=== PATIENT | male | born 1960 | race Caucasian/White ===

== ENCOUNTER 2017-09-25 13:33 | Emergency (ER) | payer OTHER, SELFPAY ==
[2017-09-25] VITALS (7 sets, daily range): BP systolic 115–136; BP diastolic 70–87; PULSE 82–115; RESP 10–20; TEMP 36.6; O2SAT 95–98; BMI 31.1
--- NOTE | 2017-09-25 14:20 | DI.RAD.S_ITS ---
PROCEDURE: XR CHEST 1V INDICATIONS: irregular heart beat, with light headedness TECHNIQUE: One view of the chest was acquired. COMPARISON: None. FINDINGS: Surgical changes and devices: None. Lungs and pleura: No pleural effusions or pneumothorax. Lungs are clear. Mediastinum: Mediastinal contours appear normal. Heart size is normal. Bones and chest wall: No suspicious bony lesions. Overlying soft tissues appear unremarkable. IMPRESSION: Negative chest. No acute cardiopulmonary process is evident. Dictated by: Pedro Sneed M.D. on 09/25/2017 at 14:40 Approved by: Pedro Sneed M.D. on 09/25/2017 at 14:42
--- NOTE | 2017-09-25 14:43 | PC.NURSE ---
pt with new physician for sleep apnea evaluation today, noted pt with irregular heartbeat and with fluctuation of bp pt report, he has a hx of afib, on metoprolol and 81mg aspiri, reports weakness,light headed,tired,sweat. denies shortness of breath or chest pain, onset at 1115a, still has sxs but not as bad. monitor remain in afib at this time 108-139.
[2017-09-25 14:44] LABS: Add Manual Diff / Slide Review NO; Basophils Percent Auto 0.7 % (0-2); Eosinophils Percent Auto 3.5 % (2-4); Hematocrit 44.8 % (41-53); Hemoglobin 15.5 g/dL (13.5-17.5); Lymphocytes Percent Auto 39.1 % (25-40); Mean Corpuscular HGB Conc 34.7 % (30-36); Mean Corpuscular Hemoglobin 31.5 PG (26-34); Mean Corpuscular Volume 90.8 fL (80-100); Monocytes Percent Auto 9.1 % (3-14); Neutrophils Absolute Auto 2700 /uL (3000-5900); Neutrophils Percent Auto 47.6 % (50-75); Platelet Count 246 X10^3/uL (150-400); Red Blood Cell Count 4.94 X10^6/uL (4.5-5.9); Red Cell Distribution Width 12.9 % (11.6-14.8); White Blood Cell Count 5.8 X10^3/uL (4.5-11.0)
[2017-09-25 14:57] LABS: Alanine Aminotransferase 42 IU/L (21-72); Albumin 4.4 g/dL (3.5-5.0); Albumin Globulin Ratio 1.3 (1.0-2.8); Alkaline Phosphatase 98 U/L (38-126); Aspartate Aminotransferase 26 IU/L (17-59); BUN Creatinine Ratio 17.8 (6-22); Bilirubin Total 0.7 mg/dL (0.2-1.3); Blood Urea Nitrogen 16 mg/dL (9-20); Calcium 9.6 mg/dL (8.4-10.2); Carbon Dioxide 29 mmol/L (22-32); Chloride 101 mmol/L (98-107); Creatine Kinase 132 U/L (55-170); Estimated Glomerular Filt Rate > 60.0 mL/min (>60); Globulin 3.5 g/dL (1.7-4.1); Glucose 93 mg/dL (70-100); HEMOLYSIS < 15 (0-50); Potassium 4.1 mmol/L (3.4-5.1); Sodium 142 mmol/L (137-145); Total Protein 7.9 g/dL (6.3-8.2)
[2017-09-25 15:11] LABS: Troponin I < 0.012 ng/mL (0.01-0.034)
[2017-09-25 15:12] LABS: CKMB % Relative Index 0.7 % (1.5-5.0); Creatine Kinase MB 0.92 ng/mL (<2.37)
[2017-09-25 15:18] LABS: INR 1.1 (0.9-1.3); Prothrombin Time 11.4 SECONDS (10.1-12.7)
[2017-09-25 15:21] LABS: PTT Partial Thromboplastin Tim 29 SECONDS (26.4-36.2)
--- NOTE | 2017-09-25 15:41 | ED_ITS ---
HPI - Arrhythmia/Palpitations General Chief Complaint: Arrhythmia/Palpitations Stated Complaint: STATES IRREGULAR HEART BEAT Time Seen by Provider: 09/25/17 14:25 Source: patient Mode of arrival: ambulatory Limitations: no limitations History of Present Illness HPI narrative: Patient with history of paroxysmal atrial fibrillation, not anticoagulated, presents to the emergency department at the request of the faculty at his sleep doctor's office. He was checking in an initial vital signs noted a rapid irregular heart rate in the 130s and possibly a low blood pressure. Patient denies chest pain, shortness of breath or near syncope. He is very largely asymptomatic MD complaint: rapid heart beat and heart racing Onset (ago): day(s) Duration: now resolved Severity: mild Arrhythmia history: atrial fibrillation Related Data Home Medications Medication Instructions Recorded Confirmed CoQ-10 1 cap PO DAILY 09/25/17 09/25/17 aspirin 81 mg PO QPM 09/25/17 09/25/17 krill oil 1 dose PO DAILY 09/25/17 09/25/17 metoprolol succinate 1 tab PO BID 09/25/17 09/25/17 Allergies Allergy/AdvReac Type Severity Reaction Status Date / Time No Known Drug Allergies Allergy Verified 09/25/17 13:41 Review of Systems Review of Systems All systems reviewed & are unremarkable except as noted in HPI and below Constitutional Denies chills, Denies fever(s), Denies lethargy and Denies weakness Eyes Denies change in vision, Denies eye discharge, Denies irritation and Denies loss of vision ENT Ears, Nose, Mouth, and Throat: Denies change in voice, Denies neck pain and Denies sore throat Cardiovascular Denies chest pain, Denies irregular heart rhythm, Denies lightheadedness, Denies palpitations, Denies dyspnea, Denies dyspnea on exertion and Denies orthopnea Respiratory Denies cough, Denies dyspnea, Denies dyspnea on exertion and Denies wheezing Gastrointestinal Gastrointestinal: Denies abdominal pain, Denies change in bowel habits, Denies diarrhea, Denies nausea and Denies vomiting Genitourinary Denies hematuria, Denies flank pain, Denies urinary incontinence and Denies urinary urgency Musculoskeletal Denies neck pain Integumentary/Breasts Denies pruritus, Denies erythema, Denies rash and Denies wounds Neurologic Denies confusion, Denies loss of vision and Denies weakness Psychiatric Denies anxiety, Denies confusion, Denies depression, Denies homicidal ideation and Denies suicidal ideation Endocrine Denies palpitations Hematologic/Lymphatic Denies easy bruising Allergic/Immunologic Denies wheezing PFSH Medical History Atrial fibrillation (Acute) Sleep apnea (Acute) Social History Smoking Status: Never smoker Exam Narrative Exam Narrative: Pleasant 57-year-old male in mild distress Initial Vital Signs Initial Vital Signs: Vital Signs Temperature 97.9 F 09/25/17 13:37 Pulse Rate 82 09/25/17 13:37 Respiratory Rate 20 09/25/17 13:37 Blood Pressure 122/79 H 09/25/17 13:37 Pulse Oximetry 98 09/25/17 13:37 Const General: cooperative and well developed Nutritional Appearance: well nourished Orientation: alert, awake, oriented x3 and not confused HENMT Head: normocephalic and atraumatic Ears: external ears normal and TM's normal bilaterally Nose: external nose normal and No nasal discharge Face and sinus: sinuses nontender, face symmetric, no sinus tenderness and No dry mucous membranes Mouth: oral mucosae normal and moist mucous membranes Teeth and gingiva: dentition normal Throat: tonsils normal and uvula midline Neck Neck: normal visual inspection, trachea midline, No lymphadenopathy, No midline deformity and No JVD Lymphatic: No lymphedema Chest Chest: normal inspection of the chest Resp Effort & Inspection: normal respiratory effort, able to speak in complete sentences, no respiratory distress and no use of accessory muscles Auscultation: clear to auscultation bilaterally, no rales, no rhonchi and no wheezes Cardio Rate: tachycardic Rhythm: abnormal rhythm Heart Sounds: no click, no gallops, no murmurs and no rubs Pulses: normal peripheral pulses GI Inspection: non-distended Palpation: soft, no hepatosplenomegaly, No guarding, No pulsatile mass and No tender Auscultation: normal bowel sounds Back/Spine/Pelvis Back: No CVA tenderness Cervical Spine: cervical ROM normal and No pain with cervical ROM Thoracic/Lumbar Spine: thoracic and lumbar spine normal to inspection Neuro General: alert, oriented x3, gait normal and no focal motor deficits Speech: speech normal Course Orders Ordered: ED Orders 09/25/17 14:20 XR chest 1V Stat 09/25/17 14:40 Complete Blood Count AUTO DIFF Stat Comprehensive Metabolic Panel Stat Partial Thromboplastin Time Stat Prothrombin Time INR Stat Troponin with CK Cardiac Panel Stat Vital Signs - 8 hr 09/25/17 13:37 09/25/17 14:22 09/25/17 15:27 Temperature 97.9 F Pulse Rate 82 108 H 107 H Respiratory Rate 20 10 L Blood Pressure 122/79 H Blood Pressure [Right Arm] 135/86 H 115/78 Pulse Oximetry 98 96 95 MDM - Arrhythmia/Palpitations Differential Diagnosis Differential diagnosis: Likely palpitations, artial fibrillation, artial flutter and ventricular premature beats Medical Records Attestation: I reviewed the patient's medical records. Lab Data Attestation: I reviewed the patient's lab results. Result diagrams: 09/25/17 14:40 09/25/17 14:40 Lab Results 09/25/17 09/25/17 09/25/17 Range/Units 14:40 14:40 14:40 WBC 5.8 (4.5-11.0) X10^3/uL RBC 4.94 (4.5-5.9) X10^6/uL Hgb 15.5 (13.5-17.5) g/dL Hct 44.8 (41-53) % MCV 90.8 (80-100) fL MCH 31.5 (26-34) PG MCHC 34.7 (30-36) % RDW 12.9 (11.6-14.8) % Plt Count 246 (150-400) X10^3/uL Neut % (Auto) 47.6 L (50-75) % Lymph % (Auto) 39.1 (25-40) % [place] % (Auto) 9.1 (3-14) % Eos % (Auto) 3.5 (2-4) % Baso % (Auto) 0.7 (0-2) % Neut # (Auto) 2700 L (9320-1843) /uL PT 11.4 (10.1-12.7) SECONDS INR 1.1 (0.9-1.3) APTT 29 (26.4-36.2) SECONDS Sodium 142 (137-145) mmol/L Potassium 4.1 (3.4-5.1) mmol/L Chloride 101 (98-107) mmol/L Carbon Dioxide 29 (22-32) mmol/L BUN 16 (9-20) mg/dL Creatinine 0.90 (0.66-1.25) mg/dL Estimated GFR > 60.0 (>60) mL/min BUN/Creatinine Ratio 17.8 (6-22) Glucose 93 (70-100) mg/dL Calcium 9.6 (8.4-10.2) mg/dL Total Bilirubin 0.7 (0.2-1.3) mg/dL AST 26 (17-59) IU/L ALT 42 (21-72) IU/L Alkaline Phosphatase 98 (38-126) U/L Total Creatine Kinase 132 (55-170) U/L CK-MB (CK-2) 0.92 (<2.37) ng/mL CK-MB (CK-2) Rel Index 0.7 L (1.5-5.0) % Troponin I < 0.012 (0.01-0.034) ng/mL Total Protein 7.9 (6.3-8.2) g/dL Albumin 4.4 (3.5-5.0) g/dL Globulin 3.5 (1.7-4.1) g/dL Albumin/Globulin Ratio 1.3 (1.0-2.8) ECG Data Attestation: I personally reviewed and interpreted this ECG as follows: Prior ECG tracings: not available for review Interpretation: Atrial fibrillation, no ischemia. Rate 120 on EKG, upper 90s on exam MDM Narrative Medical decision making narrative: FRANKO?DS?-VASc Score for Atrial Fibrillation Stroke Risk from [employer] on 09/25/2017 All calculations should be rechecked by clinician prior to use RESULT SUMMARY: 0 points Stroke risk was 0.2% per year in >90,000 patients (the [place] Atrial Fibrillation Cohort Study) and 0.3% risk of stroke/TIA/systemic embolism. One recommendation suggests a 0 score is ?low? risk and may not require anticoagulation; a 1 score is ?low-moderate? risk and should consider antiplatelet or anticoagulation, and score 2 or greater is ?moderate-high? risk and should otherwise be an anticoagulation candidate. INPUTS: Age ?> 0 = <65 Sex ?> 0 = Male <abbr title='Congestive heart failure'>CHF</abbr> history ?> 0 = No Hypertension history ?> 0 = No Stroke / TIA / Thromboembolism history ?> 0 = No Vascular disease history ?> 0 = No Diabetes history ?> 0 = No Patient is largely asymptomatic of his AFib and time of onset is unclear. Patient is a largely in AFib in the upper 90s 05/10/2004. Discussion with on- call Cardiology at [facility] recommends increasing metoprolol and following up in office Discharge Plan Departure Patient Disposition: Home, Self-Care Clinical Impression: Paroxysmal atrial fibrillation Instructions: DI for Atrial Fibrillation Activity Restrictions/Additional Instructions: *You have been diagnosed with [ atrial fibrillation ] *What to do: * please increase her metoprolol from 25 mg twice daily, 250 mg twice daily *Follow up with your foundation coordinator, call today for appointment *Return to ER if you should haveany new, worsening or concerning symptoms Prescriptions: No Action aspirin 81 mg Tablet,Delayed Release (Dr/Ec) 81 mg PO QPM RF: 0 metoprolol succinate 25 mg tablet extended release 24 hr 1 tab PO BID RF: 0 CoQ-10 1 cap PO DAILY RF: 0 krill oil 1 dose PO DAILY RF: 0 Referrals: Gama Moreland MD [Non-Staff] -
== END 2017-09-25 17:03 | disposition home or self-care (01) ==
PROVIDERS: Emergency Provider Emergency Medicine
DX: I48.0 Paroxysmal atrial fibrillation (principal)
CPT/HCPCS: 71045; 80053; 82550; 82553; 84484; 85025; 85610; 85730; 93005; 93010; 93041; 99283; 99285

== ENCOUNTER 2018-05-16 10:30 | Emergency (ER) | payer OTHER, SELFPAY ==
[2018-05-16 10:41] VITALS: BP 127/78; PULSE 60; RESP 18; O2SAT 98
--- NOTE | 2018-05-16 11:17 | ED.SKABFB ---
HPI - Skin/Abscess/Foreign Bdy General Chief complaint: Skin/Abscess/Foreign Body Stated complaint: ITCHING RASH ON HEAD Time Seen by Provider: 05/16/18 11:17 Source: patient Mode of arrival: ambulatory Limitations: no limitations History of Present Illness HPI narrative: Patient is a 58-year-old male here for a couple days of a rash that is developing on his forehead. He also is complaining that his right eye is swollen. He states that it is itchy. He has been trying an [id number] antifungal cream without any help. He did think that 1 of the spots was a blister a couple days ago. He also has been using Benadryl. Related Data Home Medications Medication Instructions Recorded Confirmed CoQ-10 1 cap PO QPM 09/25/17 05/16/18 aspirin 81 mg PO QPM 09/25/17 05/16/18 krill oil 1 cap PO DAILY 09/25/17 05/16/18 metoprolol succinate 1 tab PO BID 09/25/17 05/16/18 flecainide 50 mg PO BID 05/16/18 05/16/18 ranitidine HCl 1 tab PO DAILY PRN 05/16/18 05/16/18 Previous Rx's Medication Instructions Recorded acyclovir 800 mg PO 5XD 7 Days #35 tab 05/16/18 Allergies Allergy/AdvReac Type Severity Reaction Status Date / Time No Known Drug Allergies Allergy Verified 09/25/17 13:41 Review of Systems Constitutional Denies fever(s) and Denies headache(s) Eyes Denies itchy eyes Comments: Right eye swelling ENT Ears, Nose, Mouth, and Throat: Denies headache(s), Denies lip swelling, Denies neck pain, Denies nose pain, Denies disequilibrium, Denies sore throat, Denies throat swelling and Denies tongue swelling Cardiovascular Denies chest pain and Denies dyspnea Respiratory Denies dyspnea and Denies wheezing Gastrointestinal Gastrointestinal: Denies abdominal pain Musculoskeletal Denies neck pain Integumentary/Breasts Reports rash Neurologic Denies headache(s) and Denies disequilibrium Hematologic/Lymphatic Comments: Not on anticoagulation Allergic/Immunologic Denies urticaria, Denies itchy eyes, Denies lip swelling, Denies throat swelling, Denies tongue swelling and Denies wheezing PFSH Medical History Atrial fibrillation (Acute) Sleep apnea (Acute) Social History Smoking Status: Never smoker Social History Smoking Status: Never smoker Exam Initial Vital Signs Initial Vital Signs: Vital Signs Pulse Rate 60 05/16/18 10:41 Respiratory Rate 18 05/16/18 10:41 Blood Pressure 127/78 05/16/18 10:41 Pulse Oximetry 98 05/16/18 10:41 Const General: cooperative, healthy appearing, comfortable, well developed, well groomed and No acute distress Orientation: alert, awake and oriented x3 HENMT Head: other (See skin section for description of the rash) Eyes Sclera: sclerae normal Cornea: corneas normal and fluorescein used Pupils: PERRL Resp Effort & Inspection: normal respiratory effort Cardio Rate: regular rate Rhythm: regular rhythm GI Inspection: non-distended Palpation: soft Skin Other: Patient with 3 patches of redness on his right forehead. One patches just in front of his hairline on around his oriental orthodox. Potentially small vesicles in this area. No other patch between the midline in his right oriental orthodox. No vesicles seen however does look like there were prior vesicles that have ruptured. Patient has 1 spot just to the right of midline on his forehead. No vesicles. Neuro General: alert, awake and oriented x3 Extrem General: normal to inspection and capillary refill normal Psych Appearance: grossly normal and well kempt Course Vital Signs - 8 hr 05/16/18 10:41 Pulse Rate 60 Respiratory Rate 18 Blood Pressure 127/78 Pulse Oximetry 98 MDM - Skin/Abscess/Foreign Bdy MDM Narrative Medical decision making narrative: I do have concern based on the patient's history of physical exam that this could be zoster. He states that he has not had the zoster vaccine because he did not have chickenpox as a kid. I am not 100% convinced that this is the diagnosis however I feel that starting him on antivirals is warranted to prevent potential complications. I feel that the down side of starting these antivirals is low. I did discuss all this with the patient. There is no signs of cellulitis. No indication for antibiotics. Patient was given return precautions and care instructions. He does have a follow-up with his primary doctor next Sunday. Patient expressed understanding and agreement plan. Discharge Plan Departure Patient Disposition: Home Clinical Impression: Rash Herpes zoster Qualifiers: Herpes zoster complications: without complications Qualified Code(s): B02.9 - Zoster without complications Instructions: DI for Shingles Activity Restrictions/Additional Instructions: I do recommend you take the shingles medication as directed. Per discussion not 100% convinced that this is shingles however I feel that the down side of starting this medication is low and the potential to prevent future complications warrants starting it. You can take Benadryl for any itching. I would keep her follow-up appointment with your primary doctor next week. Return to the emergency department for any new or worsening symptoms Prescriptions: New acyclovir 800 mg tablet 800 mg PO 5XD 7 Days Qty: 35 RF: 0 No Action aspirin 81 mg Tablet,Delayed Release (Dr/Ec) 81 mg PO QPM RF: 0 metoprolol succinate 25 mg tablet extended release 24 hr 1 tab PO BID RF: 0 CoQ-10 1 cap PO QPM RF: 0 krill oil 1 cap PO DAILY RF: 0 flecainide 50 mg tablet 50 mg PO BID RF: 0 ranitidine HCl 1 tab PO DAILY PRN (Reason: Acid Reflux) RF: 0
[2018-05-16 12:01] VITALS: BP 127/70; PULSE 58; RESP 14; O2SAT 97
== END 2018-05-16 12:11 | disposition home or self-care (01) ==
PROVIDERS: Emergency Provider Emergency Medicine
DX: R21 Rash and other nonspecific skin eruption (principal)
CPT/HCPCS: 99282

== ENCOUNTER 2018-08-11 15:33 | Emergency (ER) | payer OTHER, SELFPAY ==
[2018-08-11 15:46] VITALS: BP 132/80; PULSE 55; RESP 16; TEMP 36.7; O2SAT 98
[2018-08-11] MEDS: KETOROLAC 60 MG/2 ML VIAL IM (20:42)
[2018-08-11] MEDS: CYCLOBENZAPRINE 10 MG PREPACK 1 BOTTLE MISC (20:42)
[2018-08-11] MEDS: HYDROCODONE/ACET 5/325 PREPACK 1 BOTTLE MISC (20:42)
[2018-08-11 21:36] VITALS: BP 118/81; PULSE 92; RESP 16; O2SAT 96
--- NOTE | 2018-08-11 22:25 | ED.BACK ---
HPI - Back Pain/Injury <SAMIR Bunch - Last Filed: 08/11/18 22:29> General Chief Complaint: Back Pain/Injury Stated Complaint: Hurt lower back lt leg raidiating pain Time Seen by Provider: 08/11/18 20:07 Source: patient Mode of arrival: ambulatory Limitations: no limitations History of Present Illness HPI Narrative: The patient is a 58-year-old male nonsmoker with sleep apnea and atrial fibrillation who presents with a chief complaint of left-sided lower back pain radiating down his left leg. He states he fell today few days ago when he was lifting something heavy and ankle. He followed up with a chiropractor, but states his pain got worse yesterday after golfing. He denies any incontinence of bowel or bladder. He states the pain is radiating down his left leg. He states he has stable gait. He has taken some Motrin. He has not taken anything else. He states he is only comfortable laying flat on his back with his knees bent. Related Data Home Medications Medication Instructions Recorded Confirmed CoQ-10 1 cap PO QPM 09/25/17 05/16/18 aspirin 81 mg PO QPM 09/25/17 05/16/18 krill oil 1 cap PO DAILY 09/25/17 05/16/18 metoprolol succinate 1 tab PO BID 09/25/17 05/16/18 flecainide 50 mg PO BID 05/16/18 05/16/18 ranitidine HCl 1 tab PO DAILY PRN 05/16/18 05/16/18 Previous Rx's Medication Instructions Recorded cyclobenzaprine 10 mg PO TID PRN #30 tab 08/11/18 hydrocodone-acetaminophen [[place]] 1 tab PO Q4-6H PRN #5 tab 08/11/18 ketorolac 10 mg PO Q6H PRN 2 Days #8 tab 08/11/18 Allergies Allergy/AdvReac Type Severity Reaction Status Date / Time No Known Drug Allergies Allergy Verified 09/25/17 13:41 Review of Systems <SAMIR Bunch - Last Filed: 08/11/18 22:29> Review of Systems GENERAL: Denies chills, fatigue, malaise, fever, sweats. HEENT: Denies sinus pain, ear pain, sore throat, difficulty swallowing, dizziness. RESPIRATORY: Denies dyspnea, cough, wheezing, hemoptysis, sputum. CARDIOVASCULAR: Denies chest pain, palpitations, orthopnea, edema, GASTROINTESTINAL: Denies nausea, vomiting, abdominal pain, diarrhea, constipation, melena. : Denies dysuria, frequency, incontinence, hematuria, urinary retention. MUSCULOSKELETAL: See HPI SKIN: Denies rash, skin lesions, or other NEUROLOGIC: Denies weakness, headache, numbness, change in speech, confusion, seizures, incoordination. PSYCHIATRIC: No concerning psychosocial issues. 12 point review of systems is negative except for those stated above PFSH <SAMIR Bunch - Last Filed: 08/11/18 22:29> Medical History Atrial fibrillation (Acute) Sleep apnea (Acute) Social History Smoking Status: Never smoker Social History Smoking Status: Never smoker Exam <SAMIR Bunch - Last Filed: 08/11/18 22:29> Narrative Exam Narrative: GENERAL: This is a well-nourished, well-developed patient, no acute distress HEAD: Atraumatic. Normocephalic. No temporal or scalp tenderness. EYES: Pupils equal round and reactive. Extraocular motions intact. No scleral icterus. No injection or drainage. ENT: Nose without bleeding, purulent drainage or septal hematoma. Throat without erythema, tonsillar hypertrophy or exudate. Uvula midline. Airway patent. NECK: Trachea midline. No JVD or lymphadenopathy. Supple, nontender, no meningeal signs. CARDIOVASCULAR: Regular rate and rhythm without murmurs, gallops, or rubs. RESPIRATORY: Clear to auscultation. Breath sounds equal bilaterally. No wheezes, rales, or rhonchi. No cough. No increased respiratory effort. GASTROINTESTINAL: Abdomen soft, non-tender, nondistended. No hepato-splenomegaly, or palpable masses. No guarding. EXTREMITIES: No clubbing, cyanosis, or edema. No joint tenderness, effusion, or edema noted. BACK: Nontender without deformity or crepitance. No flank tenderness. no pain to palpation of C-spine T-spine or L-spine. Pain to palpation of left paraspinal muscles lumbar region. NEURO: AOx3. Cranial nerves grossly intact. Strength is equal upper and lower extremities bilaterally SKIN: No rash or erythema. Initial Vital Signs Initial Vital Signs: Vital Signs Temperature 98.1 F 08/11/18 15:46 Pulse Rate 55 L 08/11/18 15:46 Respiratory Rate 16 08/11/18 15:46 Blood Pressure 132/80 08/11/18 15:46 Pulse Oximetry 98 08/11/18 15:46 <Quinton Goodwin DO - Last Filed: 08/12/18 06:41> Initial Vital Signs Initial Vital Signs: Vital Signs Temperature 98.1 F 08/11/18 15:46 Pulse Rate 55 L 08/11/18 15:46 Respiratory Rate 16 08/11/18 15:46 Blood Pressure 132/80 08/11/18 15:46 Pulse Oximetry 98 08/11/18 15:46 Course <NURY Bunch-ASHU - Last Filed: 08/11/18 22:29> Orders Ordered: Discontinued Medications Hydrocodone Bitart/Acetaminophen (Vicodin Prepack) 1 bottle MISC SEEINSTR ONE Stop: 08/11/18 20:17 Last Admin: 08/11/18 20:42 Dose: 1 bottle Hydrocodone Bitart/Acetaminophen ([place] 5/325) 1 tab PO NOW ONE Stop: 08/11/18 21:05 Last Admin: 08/11/18 21:36 Dose: Not Given Cyclobenzaprine HCl (Flexeril 10 Mg Prepack) 1 bottle MISC SEEINSTR ONE Stop: 08/11/18 20:17 Last Admin: 08/11/18 20:42 Dose: 1 bottle Cyclobenzaprine HCl (Flexeril) 10 mg PO NOW ONE Stop: 08/11/18 21:05 Last Admin: 08/11/18 21:36 Dose: Not Given Ketorolac Tromethamine (Toradol) 60 mg IM NOW ONE Stop: 08/11/18 20:17 Last Admin: 08/11/18 20:42 Dose: 60 mg Vital Signs - 8 hr 08/11/18 15:46 08/11/18 21:36 Temperature 98.1 F Pulse Rate 55 L 92 H Respiratory Rate 16 16 Blood Pressure 132/80 118/81 Pulse Oximetry 98 96 <Quinton Goodwin DO - Last Filed: 08/12/18 06:41> Orders Ordered: Discontinued Medications Hydrocodone Bitart/Acetaminophen (Vicodin Prepack) 1 bottle MISC SEEINSTR ONE Stop: 08/11/18 20:17 Last Admin: 08/11/18 20:42 Dose: 1 bottle Hydrocodone Bitart/Acetaminophen ([place] 5/325) 1 tab PO NOW ONE Stop: 08/11/18 21:05 Last Admin: 08/11/18 21:36 Dose: Not Given Cyclobenzaprine HCl (Flexeril 10 Mg Prepack) 1 bottle MISC SEEINSTR ONE Stop: 08/11/18 20:17 Last Admin: 08/11/18 20:42 Dose: 1 bottle Cyclobenzaprine HCl (Flexeril) 10 mg PO NOW ONE Stop: 08/11/18 21:05 Last Admin: 08/11/18 21:36 Dose: Not Given Ketorolac Tromethamine (Toradol) 60 mg IM NOW ONE Stop: 08/11/18 20:17 Last Admin: 08/11/18 20:42 Dose: 60 mg Vital Signs - 8 hr 08/11/18 15:46 08/11/18 21:36 Temperature 98.1 F Pulse Rate 55 L 92 H Respiratory Rate 16 16 Blood Pressure 132/80 118/81 Pulse Oximetry 98 96 [facility] - Back Pain/Injury <NURY Bunch- - Last Filed: 08/11/18 22:29> [facility] Narrative Medical decision making narrative: The patient is a 58-year-old male who presents with a chief complaint of left-sided back pain. He has no red flag symptoms of incontinence of bowel or bladder. He has an overall benign exam other than pain to palpation of left paraspinal muscle. He is treated in the emergency department Toradol and Flexeril. I also gave him a prescription of [place]. Encouraged patient to follow up with primary care provider. Discussed return precautions of incontinence of bowel, incontinence of bladder weakness numbness etc. Patient has no questions or concerns upon discharge. he has a stable gait. Discharge Plan Departure Patient Disposition: Home Clinical Impression: Muscle spasm Strain of lumbar region Qualifiers: Encounter type: initial encounter Qualified Code(s): S39.012A - Strain of muscle, fascia and tendon of lower back, initial encounter Back pain Qualifiers: Back pain location: low back pain Chronicity: acute Back pain laterality: left Sciatica presence: with sciatica Sciatica laterality: sciatica of left side Qualified Code(s): M54.42 - Lumbago with sciatica, left side Discharge Date/Time: 08/11/18 21:38 Interventions: ED Discharge Assessment Last Done: 08/11/18 21:36 Instructions: DI for Low Back Pain, DI for Back Pain With Sciatica, DI for Back Spasm, DI for Back Strain or Sprain Activity Restrictions/Additional Instructions: I have given you several medications to help with her back pain. They can be sedating and constipating please do not take them and drive. Please follow-up with primary care provider soon as possible. Please monitor for incontinence of bowel or bladder as well as these are signs of a spinal cord injury. please do not combine Toradol with ibuprofen or Aleve. They are in the same family. Please come back to emergency department for any acute concerns and definitely follow up with primary care provider soon as possible. Prescriptions: New cyclobenzaprine 10 mg tablet 10 mg PO TID PRN (Reason: muscle spasm) Qty: 30 RF: 0 hydrocodone-acetaminophen [[place]] 5-325 mg tablet 1 tab PO Q4-6H PRN (Reason: pain) Qty: 5 RF: 0 ketorolac 10 mg tablet 10 mg PO Q6H PRN (Reason: pain) 2 Days Qty: 8 RF: 0 No Action aspirin 81 mg Tablet,Delayed Release (Dr/Ec) 81 mg PO QPM RF: 0 metoprolol succinate 25 mg tablet extended release 24 hr 1 tab PO BID RF: 0 CoQ-10 1 cap PO QPM RF: 0 krill oil 1 cap PO DAILY RF: 0 flecainide 50 mg tablet 50 mg PO BID RF: 0 ranitidine HCl 1 tab PO DAILY PRN (Reason: Acid Reflux) RF: 0 <Quinton Goodwin DO - Last Filed: 08/12/18 06:41> [facility] Attending Eloy Attestation: I was immediately available in the department for consultation. Documentation has been reviewed. I agree with assessment and plan.
--- NOTE | 2018-08-11 22:29 | ED_ITS ---
HPI - Back Pain/Injury <SAMIR Bunch - Last Filed: 08/11/18 22:29> General Chief Complaint: Back Pain/Injury Stated Complaint: Hurt lower back lt leg raidiating pain Time Seen by Provider: 08/11/18 20:07 Source: patient Mode of arrival: ambulatory Limitations: no limitations History of Present Illness HPI Narrative: The patient is a 58-year-old male nonsmoker with sleep apnea and atrial fibrillation who presents with a chief complaint of left-sided lower back pain radiating down his left leg. He states he fell today few days ago when he was lifting something heavy and ankle. He followed up with a chiropractor, but states his pain got worse yesterday after golfing. He denies any incontinence of bowel or bladder. He states the pain is radiating down his left leg. He sta beatris he has stable gait. He has taken some Motrin. He has not taken anything else. He states he is only comfortable laying flat on his back with his knees bent. Related Data Home Medications Medication Instructions Recorded Confirmed CoQ-10 1 cap PO QPM 09/25/17 05/16/18 aspirin 81 mg PO QPM 09/25/17 05/16/18 krill oil 1 cap PO DAILY 09/25/17 05/16/18 metoprolol succinate 1 tab PO BID 09/25/17 05/16/18 flecainide 50 mg PO BID 05/16/18 05/16/18 ranitidine HCl 1 tab PO DAILY PRN 05/16/18 05/16/18 Previous Rx's Medication Instructions Recorded cyclobenzaprine 10 mg PO TID PRN #30 tab 08/11/18 hydrocodone-acetaminophen [[place]] 1 tab PO Q4-6H PRN #5 tab 08/11/18 ketorolac 10 mg PO Q6H PRN 2 Days #8 tab 08/11/18 Allergies Allergy/AdvReac Type Severity Reaction Status Date / Time No Known Drug Allergies Allergy Verified 09/25/17 13:41 Review of Systems <SAMIR Bunch - Last Filed: 08/11/18 22:29> Review of Systems GENERAL: Denies chills, fatigue, malaise, fever, sweats. HEENT: Denies sinus pain, ear pain, sore throat, difficulty swallowing, dizziness. RESPIRATORY: Denies dyspnea, cough, wheezing, hemoptysis, sputum. CARDIOVASCULAR: Denies chest pain, palpitations, orthopnea, edema, GASTROINTESTINAL: Denies nausea, vomiting, abdominal pain, diarrhea, constipation, melena. : Denies dysuria, frequency, incontinence, hematuria, urinary retention. MUSCULOSKELETAL: See HPI SKIN: Denies rash, skin lesions, or other NEUROLOGIC: Denies weakness, headache, numbness, change in speech, confusion, seizures, incoordination. PSYCHIATRIC: No concerning psychosocial issues. 12 point review of systems is negative except for those stated above PFSH <SAMIR Bunch - Last Filed: 08/11/18 22:29> Medical History Atrial fibrillation (Acute) Sleep apnea (Acute) Social History Smoking Status: Never smoker Social History Smoking Status: Never smoker Exam <SAMIR Bunch - Last Filed: 08/11/18 22:29> Narrative Exam Narrative: GENERAL: This is a well-nourished, well-developed patient, no acute distress HEAD: Atraumatic. Normocephalic. No temporal or scalp tenderness. EYES: Pupils equal round and reactive. Extraocular motions intact. No scleral icterus. No injection or drainage. ENT: Nose without bleeding, purulent drainage or septal hematoma. Throat without erythema, tonsillar hypertrophy or exudate. Uvula midline. Airway patent. NECK: Trachea midline. No JVD or lymphadenopathy. Supple, nontender, no meningeal signs. CARDIOVASCULAR: Regular rate and rhythm without murmurs, gallops, or rubs. RESPIRATORY: Clear to auscultation. Breath sounds equal bilaterally. No wheezes, rales, or rhonchi. No cough. No increased respiratory effort. GASTROINTESTINAL: Abdomen soft, non-tender, nondistended. No hepato- splenomegaly, or palpable masses. No guarding. EXTREMITIES: No clubbing, cyanosis, or edema. No joint tenderness, effusion, or edema noted. BACK: Nontender without deformity or crepitance. No flank tenderness. no pain to palpation of C-spine T-spine or L-spine. Pain to palpation of left paraspinal muscles lumbar region. NEURO: AOx3. Cranial nerves grossly intact. Strength is equal upper and lower extremities bilaterally SKIN: No rash or erythema. Initial Vital Signs Initial Vital Signs: Vital Signs Temperature 98.1 F 08/11/18 15:46 Pulse Rate 55 L 08/11/18 15:46 Respiratory Rate 16 08/11/18 15:46 Blood Pressure 132/80 08/11/18 15:46 Pulse Oximetry 98 08/11/18 15:46 <Quinton Goodwin DO - Last Filed: 08/12/18 06:41> Initial Vital Signs Initial Vital Signs: Vital Signs Temperature 98.1 F 08/11/18 15:46 Pulse Rate 55 L 08/11/18 15:46 Respiratory Rate 16 08/11/18 15:46 Blood Pressure 132/80 08/11/18 15:46 Pulse Oximetry 98 08/11/18 15:46 Course <NURY Bunch-ASHU - Last Filed: 08/11/18 22:29> Orders Ordered: Discontinued Medications Hydrocodone Bitart/Acetaminophen (Vicodin Prepack) 1 bottle MISC SEEINSTR ONE Stop: 08/11/18 20:17 Last Admin: 08/11/18 20:42 Dose: 1 bottle Hydrocodone Bitart/Acetaminophen ([place] 5/325) 1 tab PO NOW ONE Stop: 08/11/18 21:05 Last Admin: 08/11/18 21:36 Dose: Not Given Cyclobenzaprine HCl (Flexeril 10 Mg Prepack) 1 bottle MISC SEEINSTR ONE Stop: 08/11/18 20:17 Last Admin: 08/11/18 20:42 Dose: 1 bottle Cyclobenzaprine HCl (Flexeril) 10 mg PO NOW ONE Stop: 08/11/18 21:05 Last Admin: 08/11/18 21:36 Dose: Not Given Ketorolac Tromethamine (Toradol) 60 mg IM NOW ONE Stop: 08/11/18 20:17 Last Admin: 08/11/18 20:42 Dose: 60 mg Vital Signs - 8 hr 08/11/18 15:46 08/11/18 21:36 Temperature 98.1 F Pulse Rate 55 L 92 H Respiratory Rate 16 16 Blood Pressure 132/80 118/81 Pulse Oximetry 98 96 <Quinton Goodwin DO - Last Filed: 08/12/18 06:41> Orders Ordered: Discontinued Medications Hydrocodone Bitart/Acetaminophen (Vicodin Prepack) 1 bottle MISC SEEINSTR ONE Stop: 08/11/18 20:17 Last Admin: 08/11/18 20:42 Dose: 1 bottle Hydrocodone Bitart/Acetaminophen ([place] 5/325) 1 tab PO NOW ONE Stop: 08/11/18 21:05 Last Admin: 08/11/18 21:36 Dose: Not Given Cyclobenzaprine HCl (Flexeril 10 Mg Prepack) 1 bottle MISC SEEINSTR ONE Stop: 08/11/18 20:17 Last Admin: 08/11/18 20:42 Dose: 1 bottle Cyclobenzaprine HCl (Flexeril) 10 mg PO NOW ONE Stop: 08/11/18 21:05 Last Admin: 08/11/18 21:36 Dose: Not Given Ketorolac Tromethamine (Toradol) 60 mg IM NOW ONE Stop: 08/11/18 20:17 Last Admin: 08/11/18 20:42 Dose: 60 mg Vital Signs - 8 hr 08/11/18 15:46 08/11/18 21:36 Temperature 98.1 F Pulse Rate 55 L 92 H Respiratory Rate 16 16 Blood Pressure 132/80 118/81 Pulse Oximetry 98 96 [facility] - Back Pain/Injury <NURY Bunch- - Last Filed: 08/11/18 22:29> [facility] Narrative Medical decision making narrative: The patient is a 58-year-old male who presents with a chief complaint of left-sided back pain. He has no red flag symptoms of incontinence of bowel or bladder. He has an overall benign exam other than pain to palpation of left paraspinal muscle. He is treated in the emergency department Toradol and Flexeril. I also gave him a prescription of [place]. Encouraged patient to follow up with primary care provider. Discussed return precautions of incontinence of bowel, incontinence of bladder weakness numbness etc. Patient has no questions or concerns upon discharge. he has a stable gait. Discharge Plan Departure Patient Disposition: Home Clinical Impression: Muscle spasm Strain of lumbar region Qualifiers: Encounter type: initial encounter Qualified Code(s): S39.012A - Strain of muscle, fascia and tendon of lower back, initial encounter Back pain Qualifiers: Back pain location: low back pain Chronicity: acute Back pain laterality: left Sciatica presence: with sciatica Sciatica laterality: sciatica of left side Qualified Code(s): M54.42 - Lumbago with sciatica, left side Discharge Date/Time: 08/11/18 21:38 Interventions: ED Discharge Assessment Last Done: 08/11/18 21:36 Instructions: DI for Low Back Pain, DI for Back Pain With Sciatica, DI for Back Spasm, DI for Back Strain or Sprain Activity Restrictions/Additional Instructions: I have given you several medications to help with her back pain. They can be sedating and constipating please do not take them and drive. Please follow-up with primary care provider soon as possible. Please monitor for incontinence of bowel or bladder as well as these are signs of a spinal cord injury. please do not combine Toradol with ibuprofen or Aleve. They are in the same family. Please come back to emergency department for any acute concerns and definitely follow up with primary care provider soon as possible. Prescriptions: New cyclobenzaprine 10 mg tablet 10 mg PO TID PRN (Reason: muscle spasm) Qty: 30 RF: 0 hydrocodone-acetaminophen [[place]] 5-325 mg tablet 1 tab PO Q4-6H PRN (Reason: pain) Qty: 5 RF: 0 ketorolac 10 mg tablet 10 mg PO Q6H PRN (Reason: pain) 2 Days Qty: 8 RF: 0 No Action aspirin 81 mg Tablet,Delayed Release (Dr/Ec) 81 mg PO QPM RF: 0 metoprolol succinate 25 mg tablet extended release 24 hr 1 tab PO BID RF: 0 CoQ-10 1 cap PO QPM RF: 0 krill oil 1 cap PO DAILY RF: 0 flecainide 50 mg tablet 50 mg PO BID RF: 0 ranitidine HCl 1 tab PO DAILY PRN (Reason: Acid Reflux) RF: 0 <Quinton Goodwin DO - Last Filed: 08/12/18 06:41> [facility] Attending [place]oy Attestation: I was immediately available in the department for consultation. Documentation has been reviewed. I agree with assessment and plan.
== END 2018-08-11 21:38 | disposition home or self-care (01) ==
PROVIDERS: Emergency Provider Nurse Practitioner Family
DX: M62.838 Other muscle spasm (principal); S39.012A Strain of muscle, fascia and tendon of lower back, initial encounter; M54.42 Lumbago with sciatica, left side; W19.XXXA Unspecified fall, initial encounter
CPT/HCPCS: 96372; 99282; 99283; J1885

== ENCOUNTER → 2020-03-17 13:56 | Outpatient (CLI) | payer OTHER, SELFPAY ==
[2020-03-17 14:29] LABS: COVID19 -Nasal RAPID Negative (Negative)
== END ==
PROVIDERS: Visit Provider Physician Assistant
DX: Z03.818 Encounter for observation for suspected exposure to other biological agents ruled out (principal); J06.9 Acute upper respiratory infection, unspecified
CPT/HCPCS: 87635

== ENCOUNTER → 2020-11-17 16:13 | Outpatient (CLI) | payer OTHER, SELFPAY ==
[2020-11-17 16:36] LABS: COVID19 -Nasal RAPID Negative (Negative)
== END ==
PROVIDERS: Referring Provider Student in an Organized Health Care Education/Training Program; Visit Provider Student in an Organized Health Care Education/Training Program
DX: R51.9 Headache, unspecified (principal); Z20.822 Contact with and (suspected) exposure to COVID-19
CPT/HCPCS: 87635

== ENCOUNTER → 2021-05-28 11:00 | Outpatient (CLI) | payer OTHER, SELFPAY ==
--- NOTE | 2021-05-28 | DI.MRI.S_ITS ---
PROCEDURE: MR HEAD/BRAIN WO CON INDICATIONS: blurred vision of right eye/pain behind right ear TECHNIQUE: Noncontrast axial T1 spin echo, axial T2 fast spin echo, sagittal and axial FLAIR, coronal T2 fast spin echo, axial gradient echo, axial diffusion and ADC through the brain. COMPARISON: None. FINDINGS: Image quality: Excellent. CSF Spaces: Basal cisterns are patent. No extra-axial fluid collections. Ventricles are normal in size and shape. Brain: No intracranial masses or hemorrhage. [place]/white matter interface is normal. Brainstem appears normal. Diffusion-weighted images demonstrate no acute ischemic insult. No chronic ischemic insults. Normal intravascular flow voids are present. Skull and face: Calvarium has normal marrow signal. Orbits appear normal. Sinuses: Sinuses and mastoids are clear. IMPRESSION: Unremarkable brain MRI. No evidence acute stroke, hemorrhage, or mass. Dictated by: Glen Thompson M.D. on 05/29/2021 at 23:25 Approved by: Glen Thompson M.D. on 05/29/2021 at 23:27
== END ==
PROVIDERS: Referring Provider Physician Assistant; Visit Provider Physician Assistant
DX: H53.8 Other visual disturbances (principal); H92.01 Otalgia, right ear; R44.8 Other symptoms and signs involving general sensations and perceptions
CPT/HCPCS: 70551

== ENCOUNTER 2023-10-05 09:14 | Emergency (ER) | payer OTHER, SELFPAY ==
[2023-10-05] VITALS (8 sets, daily range): BP systolic 126–145; BP diastolic 74–85; PULSE 70–85; RESP 12–16; TEMP 36.6–36.8; O2SAT 91–99; BMI 30.7
--- NOTE | 2023-10-05 09:29 | ED_ITS ---
HPI - General Adult General Chief complaint: Abdominal Pain Stated complaint: Stomach pain Time Seen by Provider: 10/05/23 09:22 Source: patient Mode of arrival: Ambulatory History of Present Illness HPI narrative: 63-year-old male. Prior history of a Fidel fundoplication is here for evaluation of a couple days of generally not feeling very well, generalized abdominal pain, diarrhea. Subjective fevers. No chest pain or shortness of breath. She was near a granddaughter who had vomiting a couple days ago. He also states he feels like he has having an upper respiratory infection. No urinary symptoms. No skin changes. Has not tried anything for symptoms prior to arrival. Related Data Home Medications Medication Instructions Recorded Confirmed CoQ-10 1 cap PO QPM 09/25/17 03/17/20 aspirin 81 mg tablet,delayed 81 mg PO QPM 09/25/17 03/17/20 release krill oil 1 cap PO DAILY 09/25/17 03/17/20 metoprolol succinate 25 mg 1 tab PO BID 09/25/17 03/17/20 tablet,extended release 24 hr flecainide 50 mg tablet 50 mg PO BID 05/16/18 03/17/20 ranitidine HCl 1 tab PO DAILY PRN Acid Reflux 05/16/18 03/17/20 Previous Rx's Medication Instructions Recorded cyclobenzaprine 10 mg tablet 10 mg PO TID PRN muscle spasm #30 08/11/18 tabs hydrocodone 5 mg-acetaminophen 325 1 tab PO Q4-6H PRN pain #5 tabs 08/11/18 mg tablet ([place]) Allergies Allergy/AdvReac Type Severity Reaction Status Date / Time No Known Drug Allergies Allergy Verified 10/05/23 09:29 Review of Systems Review of Systems Narrative: See HPI Patient History Medical History Exposure to COVID-19 virus URI (upper respiratory infection) Sleep apnea Atrial fibrillation Social History Smoking Status: Never smoker Smoking Status: Never smoker alcohol intake frequency: a few times a week Substance Use Type: does not use Exam Initial Vital Signs Initial Vital Signs: Vital Signs Temperature 98.2 F 10/05/23 09:26 Pulse Rate 85 10/05/23 09:26 Respiratory Rate 12 10/05/23 09:26 Blood Pressure 139/83 10/05/23 09:26 Pulse Oximetry 98 10/05/23 09:26 Oxygen Delivery Method Room Air 10/05/23 09:26 Const General: cooperative, comfortable and No ill appearing HENMT Head: normal to inspection and normocephalic Resp Effort & Inspection: normal respiratory effort Auscultation: clear to auscultation bilaterally Cardio Rate: regular rate Rhythm: regular rhythm GI Inspection: normal to inspection and non-distended Palpation: soft, No firm, No guarding and tender Skin General: no rashes or lesions noted Neuro General: patient alert, patient awake and moves all extremities Extrem General: capillary refill normal Course Orders Ordered: ED Orders 10/05/23 09:29 Complete Blood Count AUTO DIFF Stat Comprehensive Metabolic Panel Stat Covid-19 + FLU A/B + RSV - PCR Stat Lipase Stat 10/05/23 09:30 CT abdomen pelvis w con Stat 10/05/23 09:53 Urine Microscopic Stat Discontinued Medications Sodium Chloride (Normal Saline 0.9%) 1,000 mls @ 1,000 mls/hr IV BOLUS ONE Stop: 10/05/23 10:28 Last Admin: 10/05/23 09:35 Dose: 1,000 mls/hr Documented By: MURALI Ondansetron HCl (Ondansetron 4 Mg/2 Ml Inj) 4 mg IV NOW ONE Stop: 10/05/23 09:30 Last Admin: 10/05/23 09:35 Dose: 4 mg Documented By: MURALI Vital Signs Vital signs: Vital Signs - 8 hr 10/05/23 09:26 Temperature 98.2 F Pulse Rate 85 Respiratory Rate 12 Blood Pressure 139/83 Pulse Oximetry 98 Oxygen Delivery Method Room Air Medical Decision Making Lab Data Lab results reviewed: Yes I reviewed the patient's lab results. 10/05/23 09:29 10/05/23 09:29 Labs: Lab Results 10/05/23 Range/Units 09:29 WBC 5.1 (4.5-11.0) X10^3/uL RBC 4.98 (4.5-5.9) X10^6/uL Hgb 15.6 (13.5-17.5) g/dL Hct 45.1 (41-53) % MCV 90.6 (80-100) fL MCH 31.2 (26-34) PG MCHC 34.5 (30-36) % RDW 13.3 (11.6-14.8) % Plt Count 199 (150-400) X10^3/uL Neut % (Auto) 67.9 (50-75) % Lymph % (Auto) 21.2 L (25-40) % [place] % (Auto) 8.8 (3-14) % Eos % (Auto) 1.4 L (2-4) % Baso % (Auto) 0.7 (0-2) % Neut # (Auto) 3500 (3660-3691) /uL Lymph # (Auto) 1100 (3996-8801) /uL [place] # (Auto) 500 (0-900) /uL Eos # (Auto) 100 (0-450) /uL Baso # (Auto) 0 (0-100) /uL Sodium 136 L (137-145) mmol/L Potassium 3.8 (3.4-5.1) mmol/L Chloride 105 (98-107) mmol/L Carbon Dioxide 25 (22-32) mmol/L BUN 12 (9-20) mg/dL Creatinine 0.90 (0.66-1.25) mg/dL Estimated GFR > 60 (>60) mL/min BUN/Creatinine Ratio 13.3 (6-22) Glucose 107 (80-110) mg/dL Calcium 7.8 L (8.4-10.2) mg/dL Total Bilirubin 0.8 (0.2-1.3) mg/dL AST 44 (17-59) IU/L ALT 31 (<50) IU/L Alkaline Phosphatase 76 (38-126) U/L Total Protein 7.5 (6.3-8.2) g/dL Albumin 4.0 (3.5-5.0) g/dL Globulin 3.5 (1.7-4.1) g/dL Albumin/Globulin Ratio 1.1 (1.0-2.8) Lipase 48 (23-300) U/L SARS-CoV-2 (PCR) Positive H (Negative) Influenza A (RT-PCR) Flu a negative (NEGATIVE) Influenza B (RT-PCR) Flu b negative (NEGATIVE) RSV (PCR) Negative (Negative) Urine Dip Bedside Urine Glucose Negative Bedside Urine Bilirubin - Negative Bedside Urine Ketone - Negative Urine Specific [place] 1.015 Bedside Urine Occult Blood + Bedside Urine pH 6.0 Bedside Urine Protein +/- 15 Bedside Urine Urobilinogen - Negative Bedside Urine Nitrite - Negative Bedside Urine Leukocytes - Negative Esterase Point of care testing: Urine Dip Bedside Urine Glucose Negative Bedside Urine Bilirubin - Negative Bedside Urine Ketone - Negative Urine Specific [place] 1.015 Bedside Urine Occult Blood + Bedside Urine pH 6.0 Bedside Urine Protein +/- 15 Bedside Urine Urobilinogen - Negative Bedside Urine Nitrite - Negative Bedside Urine Leukocytes - Negative Esterase Imaging Data CT scan - abdomen/pelvis: Radiologist's Impression: PROCEDURE: CT ABDOMEN PELVIS W CON INDICATIONS: Generalized abdominal pain TECHNIQUE: After the administration of intravenous contrast, axial sections acquired from the lung bases to the pubic symphysis. Coronal and sagittal reformats were performed. For radiation dose reduction, the following was used: automated exposure control, adjustment of mA and/or kV according to patient size. COMPARISON: None. FINDINGS: Image quality: Diagnostic. Lower Chest: No significant findings. ABDOMEN: Liver: No solid mass. Gallbladder: No radiopaque gallstones or wall thickening. Biliary ducts: No biliary dilation. Pancreas: No ductal dilation. Spleen: Size is within normal limits. Adrenal Glands: No adrenal nodules. Kidneys and Ureters: No hydronephrosis. No solid mass. No complex renal cystic lesion which requires follow up. Stomach and Bowel: There is mild dilatation of small bowel loops measuring up to 3.4 cm with multiple air-fluid levels. Additionally, the colon is somewhat prominent with air-fluid levels, including air-fluid levels in the rectum. Findings suggest gastroenteritis and ileus. Peritoneum: No abnormal intraperitoneal fluid. No free air. Ventral Wall: No significant ventral hernia. Abdominal Nodes: No retroperitoneal or mesenteric adenopathy by size criteria. Vessels: Aorta and inferior vena cava are normal in size. PELVIS: Pelvic Organs: Unremarkable. Bladder: No bladder wall thickening, accounting for underdistention. Pelvic Nodes: No enlarged lymph nodes. Miscellaneous: No inguinal hernias are seen. Bones: No aggressive osseous abnormality. IMPRESSION: 1. Findings suggest a combination of gastroenteritis and ileus. Discharge Plan Departure Patient Disposition: Home Clinical Impression: Gastroenteritis, COVID-19 Instructions: Diarrhea, COVID-19 Activity Restrictions/Additional Instructions: You can continue to take all of your medications as directed. You can take Tylenol and/or ibuprofen for any fevers and body aches. You can try an antidiarrheal medicines such as Imodium/loperamide. Be sure that you were increasing your fluid intake. Contact your primary doctor for follow-up. Return to the emergency department for worsening symptoms. Prescriptions: No Action aspirin 81 mg Tablet,Delayed Release (Dr/Ec) 81 mg PO QPM metoprolol succinate 25 mg tablet extended release 24 hr 1 tab PO BID Patient Comments: Take 1 tablet by mouth twice a day CoQ-10 1 cap PO QPM krill oil 1 cap PO DAILY flecainide 50 mg tablet 50 mg PO BID ranitidine HCl 1 tab PO DAILY PRN (Reason: Acid Reflux) cyclobenzaprine 10 mg tablet 10 mg PO TID PRN (Reason: muscle spasm) Qty: 30 0RF hydrocodone-acetaminophen [[place]] 5-325 mg tablet 1 tab PO Q4-6H PRN (Reason: pain) Qty: 5 0RF Referrals: ProviderAnastasia [Primary Care Provider] - Stand Alone Forms: Patient Portal/API
[2023-10-05] MEDS: ONDANSETRON 4 MG/2 ML INJ IV (09:35)
[2023-10-05] MEDS: SODIUM CHLORIDE 0.9% 1,000 ML 1000 ML IV (09:35)
[2023-10-05 09:39] LABS: Add Manual Diff / Slide Review NO; Basophils Absolute Auto 0 /uL (0-100); Basophils Percent Auto 0.7 % (0-2); Eosinophils Absolute Auto 100 /uL (0-450); Eosinophils Percent Auto 1.4 % (2-4); Hematocrit 45.1 % (41-53); Hemoglobin 15.6 g/dL (13.5-17.5); Lymphocytes Absolute Auto 1100 /uL (1100-4500); Lymphocytes Percent Auto 21.2 % (25-40); Mean Corpuscular HGB Conc 34.5 % (30-36); Mean Corpuscular Hemoglobin 31.2 PG (26-34); Mean Corpuscular Volume 90.6 fL (80-100); Monocytes Absolute Auto 500 /uL (0-900); Monocytes Percent Auto 8.8 % (3-14); Neutrophils Absolute Auto 3500 /uL (1500-7000); Neutrophils Percent Auto 67.9 % (50-75); Platelet Count 199 X10^3/uL (150-400); Red Blood Cell Count 4.98 X10^6/uL (4.5-5.9); Red Cell Distribution Width 13.3 % (11.6-14.8); White Blood Cell Count 5.1 X10^3/uL (4.5-11.0)
[2023-10-05 10:17] LABS: Influenza A - CEPHEID Flu A NEGATIVE (NEGATIVE); Influenza B - CEPHEID Flu B NEGATIVE (NEGATIVE); Respiratory Syncytial Virus Negative (Negative)
[2023-10-05 10:24] LABS: COVID-19 CEPHEID 4-PLEX PCR POSITIVE (Negative)
[2023-10-05 10:50] LABS: Alanine Aminotransferase 31 IU/L (<50); Albumin Globulin Ratio 1.1 (1.0-2.8); Alkaline Phosphatase 76 U/L (38-126); Aspartate Aminotransferase 44 IU/L (17-59); BUN Creatinine Ratio 13.3 (6-22); Bilirubin Total 0.8 mg/dL (0.2-1.3); Blood Urea Nitrogen 12 mg/dL (9-20); Calcium 7.8 mg/dL (8.4-10.2); Carbon Dioxide 25 mmol/L (22-32); Chloride 105 mmol/L (98-107); Estimated Glomerular Filt Rate > 60 mL/min (>60); Globulin 3.5 g/dL (1.7-4.1); Glucose 107 mg/dL (80-110); HEMOLYSIS 77 (0-50); Lipase 48 U/L (23-300); Potassium 3.8 mmol/L (3.4-5.1); Sodium 136 mmol/L (137-145); Total Protein 7.5 g/dL (6.3-8.2)
[2023-10-05 12:25] LABS: Urine Volume 10mL (spun)
[2023-10-05 12:27] LABS: Bacteria Urine None Seen; Culture Indicated Urine Cult Not Indicated; RBC Urine 0-1/HPF (0-5/HPF); Squamous Epithelial Cell Urine 0-1 /HPF (0-5/HPF); WBC Urine 0-1/HPF (0-5/HPF)
== END 2023-10-05 12:01 | disposition home or self-care (01) ==
PROVIDERS: Emergency Provider Emergency Medicine
DX: U07.1 COVID-19 (principal); K52.9 Noninfective gastroenteritis and colitis, unspecified
CPT/HCPCS: 0241U; 36415; 74177; 80053; 81003; 81015; 83690; 85025; 96361; 96374; 99284; J2405; Q9967

== ENCOUNTER → 2024-03-07 16:42 | Outpatient (CLI) | payer OTHER, SELFPAY ==
--- NOTE | 2024-03-07 16:46 | DI.MRI.S_ITS ---
PROCEDURE: MR HEAD/BRAIN WO CON INDICATIONS: Headache, unspecified TECHNIQUE: Non-contrast axial T1 spin echo, axial T2 fast spin echo, sagittal and axial FLAIR, coronal T2 fast spin echo, axial gradient echo, axial diffusion and ADC through the brain. COMPARISON: [facility], , MR HEAD/BRAIN WO CON, 05/28/2021, 11:12. FINDINGS: Image quality: Excellent. CSF spaces: Ventricles appear symmetric in size and shape. Basal cisterns are patent. No extra-axial fluid collections. Brain: No intracranial bleeds or mass effects. There is cerebral volume loss for age. There are periventricular and deep white matter chronic small vessel ischemic changes. Brainstem appears normal. Diffusion-weighted images show no acute infarct. No chronic ischemic insults. Normal intravascular flow voids are present. Skull and face: Calvarial bone marrow is normal in signal. Orbits are normal. Sinuses: Mild mucosal thickening is seen within the maxillary sinuses, with air-fluid levels present. Milder mucosal thickening can be seen elsewhere within the paranasal sinuses. No abnormal fluid is seen within the mastoid air cells. IMPRESSION: No imaging explanation is found for this patient's presenting symptoms. To the limits of this noncontrast study, no findings of intracranial masses or mass effect can be seen. Paranasal sinus disease noted, including air-fluid levels within the maxillary sinuses. Dictated by: Hosea Pedraza M.D. on 03/07/2024 at 17:07 Approved by: Hosea Pedraza M.D. on 03/07/2024 at 17:08
== END ==
PROVIDERS: Referring Provider Registered Nurse; Visit Provider Registered Nurse
DX: R51.9 Headache, unspecified (principal); J32.8 Other chronic sinusitis
CPT/HCPCS: 70551